=== PATIENT | male | born 1985 | race Caucasian/White ===

== ENCOUNTER 2020-08-18 19:48 | Emergency (ER) | payer BC ==
[~2020-08-18] VITALS: Ht 172.7 cm; Wt 86.9 kg
[2020-08-18 20:00] VITALS: BP 134/60
--- NOTE | 2020-08-18 21:05 | RAD ---
2V left forearm study Clinical indications: Left forearm pain. FINDINGS: No acute fracture or dislocation or lytic process evident. No left elbow joint effusion is seen. IMPRESSION: No acute fracture. Electronically signed by: Lamont Pritchard MD (08/18/2020 9:03 PM) [id number]
--- NOTE | 2020-08-18 21:20 | ED.ADGEN ---
Past Medical History Past Medical History: No Pertinent History Past Surgical History: No Surgical History Smoking Status: Current Every Day Smoker Additional Information: 1 PPD Alcohol Use: Occasionally General Adult EDM: Chief Complaint: UPPER EXTREMITY INJURY HPI: HPI: Patient is a 34 year old male, accompanied by his significant other, who presents to the emergency room with complaints of left forearm pain. Patient states that he tripped and caught himself by reaching out towards a wall early this morning and has had pain in his forearm since then. He currently rates his pain a 2 out of 10 on the pain scale, denies any alleviating factors, pain is worse with palpation and movement. He denies any numbness, tingling, weakness of the affected extremity. Review of Systems: Review of Systems: Complete ROS is negative unless otherwise noted in HPI. Allergies: Allergies: Allergies Coded Allergies Type Severity Reaction Last Updated Verified Penicillins Allergy Intermediate Rash 08/18/20 Yes Physical Exam: PE: See Above Constitutional: Well developed, well nourished, no acute distress, non-toxic appearance. [] HENT: Normocephalic, atraumatic, bilateral external ears normal, nose normal. [] Eyes: PERRLA, EOMI, conjunctiva normal, no discharge. [] Neck: Normal range of motion, no stridor. [] Cardiovascular:Heart rate regular rhythm Lungs & Thorax: Respirations even and unlabored, no retractions, no respiratory distress Skin: Warm, dry, no erythema, no rash. [] Extremities: Left forearm: Lateral proximal tenderness to palpation without obvious deformity or crepitus, no bruising, no cyanosis, ROM intact, no edema; full range of motion of left wrist and left elbow. Neurologic: Alert and oriented X 3, no focal deficits noted. [] Psychologic: Affect normal, judgement normal, mood normal. [] Current Patient Data: Vital Signs: Vital Signs Date Time Temp Pulse Resp B/P (MAP) Pulse Ox O2 Delivery O2 Flow Rate FiO2 08/18/20 20:00 98.3 77 18 134/60 (84) 99 Room Air 98.3 EKG: EKG: [] Heart Score: Risk Factors: Risk Factors: DM, Current or recent (<one month) smoker, HTN, HLP, family history of CAD, obesity. Risk Scores: Score 0 - 3: 2.5% MACE over next 6 weeks - Discharge Home Score 4 - 6: 20.3% MACE over next 6 weeks - Admit for Clinical Observation Score 7 - 10: 72.7% MACE over next 6 weeks - Early Invasive Strategies Radiology/Procedures: Radiology/Procedures: [] Course & Med Decision Making: Course & Med Decision Making Pertinent Labs and Imaging studies reviewed. (See chart for details) [] Dragon Disclaimer: Dragon Disclaimer: This electronic medical record was generated, in whole or in part, using a voice recognition dictation system. Departure Departure Impression: Primary Impression: Left forearm pain Disposition: 01 DC HOME SELF CARE/HOMELESS Condition: STABLE Referrals: MIGUEL GALAVIZ MD Patient Instructions: Contusion, [id number] Additional Instructions: Tylenol or ibuprofen as needed for pain. Recommend application of ice, and rest of affected extremity. Follow-up with Dr Galaviz if symptoms persist. Return to the ER if your symptoms worsen. STEVE SCHULTZ APRN Aug 18, 2020 21:20
== END 2020-08-18 22:32 | disposition home or self-care (01) ==
LOC: ER 19:48
DX: M79.632 Pain in left forearm (principal); F17.200 Nicotine dependence, unspecified, uncomplicated; Z88.0 Allergy status to penicillin
CPT/HCPCS: 73090; 99283